=== PATIENT | female | born 2000 | race Caucasian/White ===

== ENCOUNTER 2023-03-20 05:54 | Emergency (ER) | payer OTHER ==
[~2023-03-20] VITALS: Ht 170.2 cm; Wt 70.0 kg
[2023-03-20 06:01] VITALS: O2SAT 100
[2023-03-20] MEDS ORDERED: ACETAMINOPHEN 325MG TABLET PO ONE (06:45)
[2023-03-20] MEDS ORDERED: BACITRACIN ZINC OINT UDPKT TOP ONE (06:45)
[2023-03-20 09:30] VITALS: BP 122/59; PULSE 85; RESP 20; TEMP 98.4
== END 2023-03-20 09:31 | disposition home or self-care (01) ==
LOC: ER 05:54
DX: T21.01XA Burn of unspecified degree of chest wall, initial encounter (principal); T31.0 Burns involving less than 10% of body surface; X58.XXXA Exposure to other specified factors, initial encounter; Y93.89 Activity, other specified; Y92.89 Other specified places as the place of occurrence of the external cause; Y99.8 Other external cause status
CPT/HCPCS: 99283